=== PATIENT | male | born 1955 | race Native Hawaiian/Other Pacific Islander ===

== ENCOUNTER 2017-06-26 19:12 | Emergency (ER) | payer MEDICAID ==
[~2017-06-26] VITALS: Ht 172.7 cm; Wt 74.4 kg
[2017-06-26 20:55] LABS: BASOPHIL % 0.5 % (0-2); PLATELET COUNT 158 x10^3mcL (130-400)
[2017-06-26 20:57] LABS: RED CELL DISTRIBUTION WIDTH 16.7 % (11.5-14.5)
[2017-06-26 21:01] LABS: CALCIUM 9.5 mg/dL (8.5-10.1); CARBON DIOXIDE 31.2 mmol/L (21-32); CREATININE SERUM 1.5 mg/dL (0.7-1.3); POTASSIUM SERUM 3.4 mmol/L (3.5-5.1)
[2017-06-26 21:06] LABS: ALBUMIN 3.8 g/dL (3.4-5.0); BILIRUBIN TOTAL 1.5 mg/dL (0.20-1.00); TOTAL PROTEIN, SERUM 9.6 g/dL (6.4-8.2)
[2017-06-26 21:49] VITALS: BP 119/79
== END 2017-06-26 21:55 | disposition home or self-care (01) ==
LOC: ED 19:12
PROVIDERS: Emergency Medicine Emergency Medical Services
DX: L73.9 Follicular disorder, unspecified (principal)
CPT/HCPCS: 36415

== ENCOUNTER 2017-07-04 15:26 | Emergency (ER) | payer MEDICAID ==
[2017-07-04 16:00] VITALS: BP 118/62
== END 2017-07-04 16:00 | disposition home or self-care (01) ==
LOC: ED 15:26
DX: L73.9 Follicular disorder, unspecified (principal)